=== PATIENT | female | born 1980 | race Asian ===

== ENCOUNTER 2017-07-14 04:53 | Emergency (ER) | payer MEDICAID | END 2017-07-14 07:58 | disposition home or self-care (01) | LOC: FTE 04:53 | DX: M54.2 Cervicalgia (principal); R09.89 Other specified symptoms and signs involving the circulatory and respiratory systems | CPT/HCPCS: 99284; Z7502 ==

== ENCOUNTER 2017-11-14 08:01 | Emergency (ER) | payer MEDICAID ==
[2017-11-14 08:47] LABS: URINE BLOOD (Dip) POC Trace-intact (NEGATIVE); URINE GLUCOSE (Dip) POC Negative (NEGATIVE); URINE KETONES (Dip) POC Negative (NEGATIVE); URINE LEUKOCYTE EST (Dip) POC Negative (NEGATIVE); URINE NITRITE (Dip) POC Negative (NEGATIVE); URINE TOTAL PROTEIN POC Negative (NEGATIVE)
== END 2017-11-14 10:14 | disposition home or self-care (01) ==
LOC: FTE 08:01
DX: N83.202 Unspecified ovarian cyst, left side (principal)
CPT/HCPCS: 76830; 76856; 81003; 81025; 82962; 99284-25